=== PATIENT | female | born 1985 | race Caucasian/White ===

== ENCOUNTER 2018-02-24 10:58 | Inpatient (IN) | payer OTHER ==
[~2018-02-24 10:58] MED LIST: OXYTOCIN 30 UNITS/LR 500 ML BAG IV
[2018-02-24] MEDS ORDERED: OXYTOCIN 30 UNITS/LR 500 ML IV ×2 (12:00→22:00)
[2018-02-24] MEDS ORDERED: MISOPROSTOL 200 MCG TAB PR ×2 (12:00→22:00)
[2018-02-24] MEDS ORDERED: CARBOPROST 250 MCG INJ IM ×2 (12:00→22:00)
[2018-02-24] MEDS ORDERED: METHYLERGONOVINE 0.2 MG INJ IM ×2 (12:00→22:00)
[2018-02-24 12:05] LABS: ADD MAN DIFF? NO
[2018-02-24 12:10] LABS: WHITE BLOOD COUNT 11.4 10^3/ul (4.8-10.8)
[2018-02-24 12:10] LABS: BASOPHIL # 0.1 10^3/ul (0.0-0.1); BASOPHILS % 0.6 % (0.0-2.0); EOSINOPHILS % 0.3 % (0.0-7.0); HEMATOCRIT 32.6 % (37.0-47.0); HEMOGLOBIN 10.7 g/dl (12.0-16.0); LYMPHOCYTES # 2.5 10^3/ul (0.8-2.9); LYMPHOCYTES % 21.9 % (15.0-51.0); MEAN CORPUSCULAR HEMOGLOBIN 28.6 pg (29.0-33.0); MEAN CORPUSCULAR HGB CONC 32.8 g/dl (32.0-37.0); MEAN CORPUSCULAR VOLUME 87.2 fl (82.0-101.0); MEAN PLATELET VOLUME 10.4 fl (7.4-10.4); MONOCYTE # 0.8 10^3/ul (0.3-0.9); MONOCYTES % 7.4 % (0.0-11.0); NEUTROPHIL # 7.9 10^3/ul (1.6-7.5); NEUTROPHILS % 69.4 % (39.0-77.0); PLATELET COUNT 206 10^3/UL (140-415); RED BLOOD COUNT 3.74 10^6/ul (4.20-5.40); RED CELL DISTRIBUTION WIDTH 14.1 % (11.5-14.5)
[2018-02-24 12:52] LABS: INR 0.91; PROTIME 12.3 Sec (11.9-14.9)
[2018-02-24 12:53] LABS: PARTIAL THROMBOPLASTIN TIME 25.2 Sec (25.0-35.0)
[2018-02-24 13:02] LABS: HEPATITIS B SURFACE ANTIGEN NEGATIVE (NEGATIVE)
[2018-02-24 14:57] LABS: RAPID PLASMA REAGIN NONREACTIVE (NR)
[2018-02-24] MEDS: LACTATED RINGER'S 1,000 ML IV ×2 (15:19→23:41)
[2018-02-24 16:21] LABS: AMPHETAMINE/METHAMPHETAMINE NEGATIVE (NEGATIVE); BARBITURATES NEGATIVE (NEGATIVE); BENZODIAZEPINES NEGATIVE (NEGATIVE); CANNABINOIDS POSITIVE (NEGATIVE); COCAINE NEGATIVE (NEGATIVE); OPIATES NEGATIVE (NEGATIVE)
[2018-02-24] MEDS ORDERED: ONDANSETRON 4 MG INJ (16:30)
[2018-02-24] MEDS ORDERED: morphine SULFATE/PF (10 MG/10 ML) INJ (16:30)
[2018-02-24] MEDS ORDERED: OXYTOCIN 10 UNIT INJ ×2 (16:30)
[2018-02-24] MEDS ORDERED: BUPIVACAINE 0.75%/DEXT (SPINAL) 2 ML INJ (16:31)
[2018-02-24] MEDS ORDERED: PHENYLephrine (100 MCG/ML) 5ML SYG (17:00)
[2018-02-24] MEDS ORDERED: FENTAnyl 50 MCG/ML VIAL ×3 (17:14→17:27)
[2018-02-24] MEDS ORDERED: MIDAZOLAM 1 MG/ML 2 ML INJ (17:15)
[2018-02-24] MEDS ORDERED: KETAMINE (100 MG/ML) 5 ML VIAL (17:28)
[2018-02-24] MEDS: OXYTOCIN 30 UNITS/LR 500 ML IV (19:15)
[2018-02-24] MEDS: CEFAZOLIN 2 GM/50 ML (PMX) 50 ML IV (20:37)
[2018-02-24] MEDS ORDERED: DIPHENHYDRAMINE 50 MG INJ IV (22:00)
[2018-02-24] MEDS ORDERED: ZOLPIDEM 5 MG TAB PO (22:00)
[2018-02-24] MEDS ORDERED: ONDANSETRON 4 MG INJ IV ×2 (22:00→22:30)
[2018-02-24] MEDS ORDERED: morphine 2 MG INJ IV (22:30)
[2018-02-24] MEDS ORDERED: NALOXONE (0.4 MG/ML) INJ IV (22:30)
[2018-02-24] MEDS: KETOROLAC 30 MG INJ IV (23:55)
[2018-02-25] MEDS: LACTATED RINGER'S 1,000 ML IV ×3 (05:50→21:06)
[2018-02-25] MEDS: IBUPROFEN 600 MG TAB PO ×4 (06:00→17:13)
[2018-02-25] MEDS: KETOROLAC 30 MG INJ IV ×3 (06:02→15:57)
[2018-02-25 11:11] LABS: ADD MAN DIFF? NO
[2018-02-25 11:16] LABS: WHITE BLOOD COUNT 14.4 10^3/ul (4.8-10.8)
[2018-02-25 11:16] LABS: BASOPHILS % 0.3 % (0.0-2.0); EOSINOPHILS % 0.1 % (0.0-7.0); HEMATOCRIT 28.6 % (37.0-47.0); HEMOGLOBIN 9.1 g/dl (12.0-16.0); LYMPHOCYTES # 1.4 10^3/ul (0.8-2.9); LYMPHOCYTES % 9.9 % (15.0-51.0); MEAN CORPUSCULAR HEMOGLOBIN 27.7 pg (29.0-33.0); MEAN CORPUSCULAR HGB CONC 31.8 g/dl (32.0-37.0); MEAN CORPUSCULAR VOLUME 87.2 fl (82.0-101.0); MEAN PLATELET VOLUME 10.6 fl (7.4-10.4); MONOCYTE # 0.9 10^3/ul (0.3-0.9); MONOCYTES % 6.3 % (0.0-11.0); NEUTROPHIL # 11.9 10^3/ul (1.6-7.5); PLATELET COUNT 159 10^3/UL (140-415); RED BLOOD COUNT 3.28 10^6/ul (4.20-5.40)
[2018-02-25] MEDS: SENNA/DOCUSATE NA (8.6MG/50MG) TAB PO ×2 (11:38→21:31)
[2018-02-26] MEDS: OXYCODONE/ACETAMINOPHEN (5/325) TAB PO ×3 (03:45→13:54)
[2018-02-26] MEDS: LACTATED RINGER'S 1,000 ML IV ×3 (05:50→21:50)
[2018-02-26] MEDS: IBUPROFEN 600 MG TAB PO ×4 (06:00→18:30)
[2018-02-26] MEDS: SENNA/DOCUSATE NA (8.6MG/50MG) TAB PO ×2 (09:26→21:39)
[2018-02-26] MEDS: LANOLIN 7 GM TUBE TOP (09:27)
[2018-02-27] MEDS: IBUPROFEN 600 MG TAB PO ×3 (00:27→12:02)
[2018-02-27] MEDS: LACTATED RINGER'S 1,000 ML IV (05:50)
[2018-02-27 08:11] LABS: ADD MAN DIFF? NO
[2018-02-27 08:14] LABS: WHITE BLOOD COUNT 13.5 10^3/ul (4.8-10.8)
[2018-02-27 08:14] LABS: BASOPHIL # 0.1 10^3/ul (0.0-0.1); BASOPHILS % 0.7 % (0.0-2.0); EOSINOPHILS # 0.1 10^3/ul (0.0-0.5); HEMATOCRIT 31.8 % (37.0-47.0); HEMOGLOBIN 9.9 g/dl (12.0-16.0); LYMPHOCYTES # 2.7 10^3/ul (0.8-2.9); LYMPHOCYTES % 19.9 % (15.0-51.0); MEAN CORPUSCULAR HEMOGLOBIN 27.7 pg (29.0-33.0); MEAN CORPUSCULAR HGB CONC 31.1 g/dl (32.0-37.0); MEAN CORPUSCULAR VOLUME 88.8 fl (82.0-101.0); MEAN PLATELET VOLUME 10.4 fl (7.4-10.4); MONOCYTE # 0.7 10^3/ul (0.3-0.9); MONOCYTES % 5.5 % (0.0-11.0); NEUTROPHIL # 9.8 10^3/ul (1.6-7.5); NEUTROPHILS % 72.5 % (39.0-77.0); PLATELET COUNT 210 10^3/UL (140-415); RED BLOOD COUNT 3.58 10^6/ul (4.20-5.40); RED CELL DISTRIBUTION WIDTH 14.1 % (11.5-14.5)
[2018-02-27] MEDS: SENNA/DOCUSATE NA (8.6MG/50MG) TAB PO (08:59)
[2018-02-27] MEDS: DIPHTH/TET/ACEL PERTUSS (ADULT) 0.5 ML VIAL IM* (09:00)
== END 2018-02-27 12:45 | disposition home or self-care (01) | DRG 766 ==
LOC: L-D 10:58 → PP1 20:55
PROVIDERS: Obstetrics & Gynecology
PROC: 10D00Z1 Extraction of Products of Conception, Low, Open Approach (ICD-10-PCS; principal; 2018-02-24 12:30)
DX: O34.211 Maternal care for low transverse scar from previous cesarean delivery (principal); Z3A.39 39 weeks gestation of pregnancy; Z37.0 Single live birth
CPT/HCPCS: 80307; 85025; 85610; 85730; 86592; 86850; 86900; 86901; 87340; 99464